=== PATIENT | female | born 1955 | race Caucasian/White ===

== ENCOUNTER 2023-07-18 09:04 | Observation (INO) ==
[2023-07-18 11:36] VITALS: BMI 29.2
[2023-07-18] MEDS: ROCEPHIN VIAL 1 GRAM 1 G in NS 100 ML IV 100 ML IV SCH (12:58)
[2023-07-18] MEDS: NS 1,000 ML IV 1,000 ML IV SCH (12:59)
[2023-07-18 13:05] LABS: BASOPHILS # (AUTO) 0.1 X10^3/uL (0.0-0.1); BASOPHILS % (AUTO) 1.3 % (0.2-1.0); EOSINOPHILS # (AUTO) 0.1 x10^3/uL (0.0-0.2); EOSINOPHILS % (AUTO) 1.2 % (0.9-2.9); HEMATOCRIT 35.3 % (36.0-47.0); HEMOGLOBIN 12.2 g/dL (12.0-16.0); LYMPHOCYTES # (AUTO) 2.4 X10^3/uL (1.3-2.9); MEAN CORPUSCULAR HEMOGLOBIN 33.8 pg (27.0-34.0); MEAN CORPUSCULAR HGB CONC 34.7 g/dL (33.0-35.0); MEAN CORPUSCULAR VOLUME 97.6 fL (80.0-100.0); MEAN PLATELET VOLUME 6.9 fL (7.4-11.0); MONOCYTES # (AUTO) 0.7 x10^3/uL (0.3-0.8); MONOCYTES % (AUTO) 7.9 % (0.0-13.0); NEUTROPHILS # (AUTO) 5.4 x10^3/uL (2.2-4.8); NEUTROPHILS % (AUTO) 61.6 % (42.0-75.0); PLATELET COUNT 384 X10^3/uL (150.0-450.0); RED BLOOD COUNT 3.62 X10^6/uL (3.5-5.4); RED CELL DISTRIBUTION WIDTH 13.8 % (11.6-16.5); WHITE BLOOD COUNT 8.7 X10^3/uL (3.6-10.0)
[2023-07-18 13:43] LABS: ALANINE AMINOTRANSFERASE 25 Units/L (12-78); ALBUMIN 3.1 g/dL (3.4-5.0); ALKALINE PHOSPHATASE 68 Units/L (46-116); ASPARTATE AMINO TRANSFERASE 13 Units/L (15-37); BLOOD UREA NITROGEN 7 mg/dL (7-18); CALCIUM 9.2 mg/dL (8.5-10.1); CARBON DIOXIDE 24.4 mmol/L (21-32); CHLORIDE 110 mmol/L (98-107); COR CA(FOR HYPOALB) 9.9 mg/dL (8.5-10.1); CREATININE 0.65 mg/dL (0.55-1.02); GLUCOSE 106 mg/dL (65-99); MAGNESIUM 1.9 mg/dL (2.0-2.9); POTASSIUM 3.2 mmol/L (3.5-5.1); SODIUM 145 mmol/L (136-145); TOTAL PROTEIN 6.5 g/dL (6.4-8.2); eGFR NON BLACK RACES > 60 (>60)
--- NOTE | 2023-07-18 13:50 | DR.H&P ---
H&P History & Physical for Day of: H&P Date: 07/18/23 Chief Complaint Chief Complaint: weakness, swelling to legs, short of breath Allergies Allergies Allergy/AdvReac Type Severity Reaction Status Date / Time codeine Allergy Verified 07/18/23 12:29 History of Present Illness History of Present Illness: PT IS 67 WF, DIRECT ADMIT WITH CO SOB WORSE ON EXERTION, SWELLING TO BOTH LEGS AND INCREASED LETHARGY. PT WAS RECENTLY ADMITTED TO [facility] IN [place] FOR AMS UTI AND INFLUENZA. PT WAS SENT TO [facility] AND WAS "TAKEN OFF LITHIUM" PT HAS PMH OF BIPOLAR DISORDER. PT DENIES ANY HX OF CAD OR CHF. PT HAS BEEN ON PO KEFLEX FOR UTI Past Surgical History Surgical History: and Cholecystectomy Family History Family Medical History: Hypertension Social History Does patient currently use any type of tobacco product: No Have you used tobacco products in the last 12 months: No Type of Tobacco Use: None Does any household member use tobacco: No Alcohol Use: None Drug Use: None Medications Home Medications: Home Medications Medication Instructions Recorded Confirmed Type buspirone 10 mg tablet 10 mg PO BID 07/18/23 07/18/23 History cholecalciferol (vitamin D3) 125 125 mcg PO DAILY 07/18/23 07/18/23 History mcg (5,000 unit) tablet (Vitamin D3) dicyclomine 10 mg capsule 10 mg PO TID PRN 07/18/23 07/18/23 History doxepin 25 mg capsule 50 mg PO QPM 07/18/23 07/18/23 History ergocalciferol (vitamin D2) 1,250 1,250 mcg PO QWEEK 07/18/23 07/18/23 History mcg (50,000 unit) capsule esomeprazole magnesium 20 mg 20 mg PO QDAY 07/18/23 07/18/23 History capsule,delayed release ezetimibe 10 mg tablet 10 mg PO QDAY 07/18/23 07/18/23 History furosemide 20 mg tablet 20 mg PO PRN 07/18/23 07/18/23 History hydrocodone 5 mg-acetaminophen 325 1 tab PO Q4H PRN 07/18/23 07/18/23 History mg tablet lithium carbonate 150 mg capsule 150 mg PO BID 07/18/23 07/18/23 History loratadine 10 mg tablet 10 mg PO QDAY 07/18/23 07/18/23 History losartan 25 mg tablet 25 mg PO BID 07/18/23 07/18/23 History montelukast 10 mg tablet 10 mg PO QDAY 07/18/23 07/18/23 History omeprazole 40 mg capsule,delayed 40 mg PO QDAY 07/18/23 07/18/23 History release ondansetron HCl 4 mg tablet 4 mg PO Q6H PRN 07/18/23 07/18/23 History oseltamivir 75 mg capsule 75 mg PO BID 07/18/23 07/18/23 History potassium chloride 10 mEq 10 meq PO QDAY 07/18/23 07/18/23 History tablet,extended release(part/cryst) pregabalin 100 mg capsule 100 mg PO TID 07/18/23 07/18/23 History propranolol 10 mg tablet 10 mg PO TID 07/18/23 07/18/23 History ropinirole 2 mg tablet 2 mg PO QPM 07/18/23 07/18/23 History valacyclovir 1 gram tablet 1,000 mg PO QDAY 07/18/23 07/18/23 History Labs 07/18/23 12:55 07/18/23 12:55 Labs: Laboratory WBC 8.7 X10^3/uL (3.6-10.0) 07/18/23 12:55 RBC 3.62 X10^6/uL (3.5-5.4) 07/18/23 12:55 Hgb 12.2 g/dL (12.0-16.0) 07/18/23 12:55 Hct 35.3 % (36.0-47.0) L 07/18/23 12:55 MCV 97.6 fL (80.0-100.0) 07/18/23 12:55 MCH 33.8 pg (27.0-34.0) 07/18/23 12:55 MCHC 34.7 g/dL (33.0-35.0) 07/18/23 12:55 RDW 13.8 % (11.6-16.5) 07/18/23 12:55 Plt Count 384 X10^3/uL (150.0-450.0) 07/18/23 12:55 MPV 6.9 fL (7.4-11.0) L 07/18/23 12:55 Neut % (Auto) 61.6 % (42.0-75.0) 07/18/23 12:55 Lymph % (Auto) 28.0 % (21.0-51.0) 07/18/23 12:55 [place] % (Auto) 7.9 % (0.0-13.0) 07/18/23 12:55 Eos % (Auto) 1.2 % (0.9-2.9) 07/18/23 12:55 Baso % (Auto) 1.3 % (0.2-1.0) H 07/18/23 12:55 Neut # (Auto) 5.4 x10^3/uL (2.2-4.8) H 07/18/23 12:55 Lymph # (Auto) 2.4 X10^3/uL (1.3-2.9) 07/18/23 12:55 [place] # (Auto) 0.7 x10^3/uL (0.3-0.8) 07/18/23 12:55 Eos # (Auto) 0.1 x10^3/uL (0.0-0.2) 07/18/23 12:55 Baso # (Auto) 0.1 X10^3/uL (0.0-0.1) 07/18/23 12:55 Absolute Nucleated RBC 0.0 /100WBC 07/18/23 12:55 D-Dimer 1.18 ug/ml (0.0-0.57) H 07/18/23 12:55 B-Natriuretic Peptide 46.7 pg/mL (0-79) 07/18/23 12:55 Review of Systems Constitutional: Weakness and Malaise Eyes: No Symptoms Reported ENT: No Symptoms Reported Respiratory: Shortness of Breath Cardiovascular: Edema Gastrointestinal: Nausea Genitourinary: Dysuria and Frequency Musculoskeletal: Back Pain Skin: No Symptoms Reported Neurological: Weakness and Confusion Physical Exam Vital Signs: Vital Signs Pulse Rate 103 Pulse Rate 107 Pulse Rate 95 Pulse Rate 80 Pulse Rate 86 Pulse Rate 92 Pulse Rate 87 Pulse Rate 92 Pulse Rate 89 Pulse Rate 83 Pulse Rate 88 Pulse Rate 93 Pulse Rate 92 Pulse Rate 87 Pulse Rate 92 Respiratory Rate 38 Respiratory Rate 44 Respiratory Rate 49 Respiratory Rate 18 Respiratory Rate 40 Respiratory Rate 35 Respiratory Rate 29 Respiratory Rate 29 Respiratory Rate 42 Respiratory Rate 19 Respiratory Rate 19 Respiratory Rate 27 Respiratory Rate 19 Respiratory Rate 20 Respiratory Rate 24 Blood Pressure 134/66 Blood Pressure 164/78 Blood Pressure 182/85 O2 Sat by Pulse Oximetry 99 O2 Sat by Pulse Oximetry 96 O2 Sat by Pulse Oximetry 95 O2 Sat by Pulse Oximetry 96 O2 Sat by Pulse Oximetry 100 O2 Sat by Pulse Oximetry 98 O2 Sat by Pulse Oximetry 96 O2 Sat by Pulse Oximetry 98 O2 Sat by Pulse Oximetry 94 O2 Sat by Pulse Oximetry 98 O2 Sat by Pulse Oximetry 68 O2 Sat by Pulse Oximetry 99 O2 Sat by Pulse Oximetry 100 O2 Sat by Pulse Oximetry 100 Oriented: Normal Eyes: Normal Nose: Normal Throat: Dry Respiratory: RLL Diminished and LLL Diminished Cardiovascular: Edema Auscultation: Bowel Sounds: Normal Palpation: Normal Tenderness: Normal Skin: Decreased [place] Musculoskeletal: Normal Psychiatric: Anxiety and Agitation Affect: Anxious Speech Pattern: Inappropriate Assessment/Plan (1) UTI (urinary tract infection): Narrative Support Text: ADMIT IV HYDRATION WITH NS AT K[facility] ADMISSION LABS INCLUDING BNP CXR ON ADMISSION I &OS, UA/UC IV ROCEPHIN OBTAIN DC SUMMARY FROM [facility] Status: Acute (2) AMS (altered mental status): Status: Acute (3) Bipolar 1 disorder: Status: Acute (4) Edema: Status: Acute (5) SOB (shortness of breath): Status: Acute
--- NOTE | 2023-07-18 13:56 | RAD ---
EXAM: CHEST, PA/LAT ADULT HISTORY: SOB; COMPARISON: Prior study or studies were utilized for comparison during interpretation with the most relevant paula ed 04/10/2023 TECHNIQUE: CHEST, PA/LAT ADULT FINDINGS: Chest: Lines and tubes: Cardiac leads overlie the chest. Mediastinum: Cardiac and mediastinal shadow is within normal limits for size and contour. Pulmonary vessels: No pulmonary vascular congestion. Lung do: No suspicious airspace opacity. Pleura: No effusion. No pneumothorax. Bones and soft tissues: No acute osseous or soft tissue abnormality. IMPRESSION: 1. No acute cardiopulmonary abnormality THIS IS AN ELECTRONICALLY VERIFIED FINAL REPORT 07/18/2023 1:53 PM - Electronically signed by Shabbir Reynolds MD
[2023-07-18] MEDS: NORCO 5/325 MG TAB PO PRN (15:36)
[2023-07-18 17:17] LABS: BILIRUBIN,URINE NEGATIVE (NEGATIVE); BLOOD/HEMOGLOBIN,URINE NEGATIVE (NEGATIVE); GLUCOSE, URINE NEGATIVE (NEGATIVE); KETONES,URINE NEGATIVE (NEGATIVE); LEUKOCYTE ESTERASE ,URINE NEGATIVE (NEGATIVE); NITRITES,URINE NEGATIVE (NEGATIVE); PROTEIN,URINE NEGATIVE (NEGATIVE); UROBILINOGEN,URINE NORMAL (NORMAL)
[2023-07-18 17:33] LABS: APPEARANCE,URINE CLEAR (CLEAR); COLOR,URINE YELLOW (YELLOW)
[2023-07-18] MEDS ORDERED: CONSULT PHARMACY - POTASSIUM & MAGNESIUM XX SCH (18:00)
[2023-07-18] MEDS: MAG-OX TAB PO SCH (21:21)
[2023-07-18] MEDS: K-DUR TAB 20 MEQ PO SCH (21:22)
[2023-07-18] MEDS: SINEquan PO SCH (21:24)
[2023-07-18] MEDS: COZAAR PO SCH (21:24)
[2023-07-18] MEDS: BUSPAR PO SCH (21:30)
[2023-07-19 04:46] LABS: BASOPHILS % (AUTO) 0.8 % (0.2-1.0); EOSINOPHILS # (AUTO) 0.2 x10^3/uL (0.0-0.2); EOSINOPHILS % (AUTO) 2.6 % (0.9-2.9); HEMATOCRIT 32.3 % (36.0-47.0); HEMOGLOBIN 11.3 g/dL (12.0-16.0); LYMPHOCYTES # (AUTO) 1.9 X10^3/uL (1.3-2.9); LYMPHOCYTES % (AUTO) 30.4 % (21.0-51.0); MEAN CORPUSCULAR HEMOGLOBIN 34.1 pg (27.0-34.0); MEAN CORPUSCULAR HGB CONC 35.1 g/dL (33.0-35.0); MEAN CORPUSCULAR VOLUME 97.2 fL (80.0-100.0); MEAN PLATELET VOLUME 7.2 fL (7.4-11.0); MONOCYTES # (AUTO) 0.7 x10^3/uL (0.3-0.8); MONOCYTES % (AUTO) 11.3 % (0.0-13.0); NEUTROPHILS # (AUTO) 3.5 x10^3/uL (2.2-4.8); NEUTROPHILS % (AUTO) 54.9 % (42.0-75.0); PLATELET COUNT 364 X10^3/uL (150.0-450.0); RED BLOOD COUNT 3.32 X10^6/uL (3.5-5.4); RED CELL DISTRIBUTION WIDTH 13.7 % (11.6-16.5); WHITE BLOOD COUNT 6.3 X10^3/uL (3.6-10.0)
[2023-07-19 04:57] LABS: ALANINE AMINOTRANSFERASE 24 Units/L (12-78); ALBUMIN 2.6 g/dL (3.4-5.0); ALKALINE PHOSPHATASE 64 Units/L (46-116); ASPARTATE AMINO TRANSFERASE 9 Units/L (15-37); BLOOD UREA NITROGEN 10 mg/dL (7-18); CALCIUM 8.4 mg/dL (8.5-10.1); CARBON DIOXIDE 23.6 mmol/L (21-32); CHLORIDE 112 mmol/L (98-107); COR CA(FOR HYPOALB) 9.5 mg/dL (8.5-10.1); COR NA(FOR HYPERGLY) 147 mmol/L (136-145); CREATININE 0.68 mg/dL (0.55-1.02); GLUCOSE 130 mg/dL (65-99); MAGNESIUM 1.9 mg/dL (2.0-2.9); POTASSIUM 3.5 mmol/L (3.5-5.1); SODIUM 146 mmol/L (136-145); TOTAL PROTEIN 5.8 g/dL (6.4-8.2); eGFR NON BLACK RACES > 60 (>60)
[2023-07-19] MEDS: MAG-OX TAB PO SCH (08:25)
[2023-07-19] MEDS: K-DUR TAB 20 MEQ PO SCH (08:25)
[2023-07-19] MEDS: SINGULAIR TAB 10 MG PO SCH (08:40)
[2023-07-19] MEDS: NS 1/2 1,000 ML IV 1,000 ML IV SCH (08:40)
--- NOTE | 2023-07-19 09:14 | EKG ---
Test Reason : increased heart rate Blood Pressure : */* mmHG Vent. Rate : 102 BPM Atrial Rate : 102 BPM P-R Int : 114 ms QRS Dur : 88 ms QT Int : 358 ms P-R-T Axes : 19 -35 15 degrees QTc Int : 466 ms Sinus tachycardia Left axis deviation Moderate voltage criteria for LVH, may be normal variant ( R in aVL , [place] product ) Abnormal ECG When compared with ECG of 10-APR-2023 10:32, No significant change was found Confirmed by Jose C Zamora ([id number]) on 07/19/2023 12:26:44 PM Referred By: Confirmed By: Jose C Zamora
[2023-07-19] MEDS: NS 1/2 1,000 ML IV 1,000 ML IV ONE (09:31)
[2023-07-19] MEDS: CONSULT PHARMACY - POTASSIUM & MAGNESIUM XX SCH (09:32)
--- NOTE | 2023-07-19 17:28 | PCM.PROG ---
Progress Note Progress Note for Day of Date of Exam: 07/19/23 Subjective Subjective: Patient is a 67 year old white female who was a direct admit yesterday for treatment of SOB worse on exertion, lower extremity edema and increased lethargy. She had been recently treated at [facility] for AMS, UTI, influenza. She was transferred to behavior unit and was taken off of li thium, in treatment of bipolar disorder, per patient. She had been on po keflex for UTI. Upon admission, labs obtained: wbc 8.7, hgb 12.2, na 145, k 3.2, magnesium 1.9. Chest xray showed no acute cardiopulmonary process. Urine culture, lithium level obtained and pending. EKG showed no significant change from previous reading. We started the patient on IV hydration, IV abx, potassium/magnesium replacement, and resumed home medications. AM labs: wbc, 6.3, hgb 11.3, na 146, k 3.5, magnesium 1.9. Morning vitals: 169/09-704-23-96%. Patient reported that she was also treated for shingles duri ng previous hospitalization and records show that patient completed a round of valacyclovir. Past Medical Family Social History Allergies: Allergies codeine Allergy (Verified 07/18/23 12:29) Vital Signs and I&O's Vital Signs: Vital Signs Temperature 98.5 F Pulse Rate 102 Pulse Rate 110 Pulse Rate 96 Pulse Rate 105 Pulse Rate 87 Pulse Rate 112 Respiratory Rate 14 Respiratory Rate 14 Respiratory Rate 23 Respiratory Rate 18 Respiratory Rate 14 Respiratory Rate 12 Respiratory Rate 13 Blood Pressure 169/71 Blood Pressure 165/74 Blood Pressure 156/68 Blood Pressure 154/70 Blood Pressure 156/67 Blood Pressure 156/74 O2 Sat by Pulse Oximetry 96 O2 Sat by Pulse Oximetry 99 O2 Sat by Pulse Oximetry 97 O2 Sat by Pulse Oximetry 99 O2 Sat by Pulse Oximetry 95 O2 Sat by Pulse Oximetry 100 Intake and Output: Intake & Output 07/16/23 07/17/23 07/18/23 07/19/23 11:59 11:59 11:59 11:59 Intake Total 1555 / 1555 Balance 1555 / 1555 Physical Exam Oriented: Normal Eyes: Normal Nose: Normal Throat: Dry Cardiovascular: Edema Auscultation: Bowel Sounds: Normal Tenderness: Normal Skin: Decreased [place] Musculoskeletal: Normal Psychiatric: Anxiety and Agitation Affect: Anxious Speech Pattern: Clear and Appropriate Laboratory and Diagnostics 07/19/23 04:16 07/19/23 04:16 Labs: Laboratory WBC 6.3 X10^3/uL (3.6-10.0) 07/19/23 04:16 RBC 3.32 X10^6/uL (3.5-5.4) L 07/19/23 04:16 Hgb 11.3 g/dL (12.0-16.0) L 07/19/23 04:16 Hct 32.3 % (36.0-47.0) L 07/19/23 04:16 MCV 97.2 fL (80.0-100.0) 07/19/23 04:16 MCH 34.1 pg (27.0-34.0) H 07/19/23 04:16 MCHC 35.1 g/dL (33.0-35.0) H 07/19/23 04:16 RDW 13.7 % (11.6-16.5) 07/19/23 04:16 Plt Count 364 X10^3/uL (150.0-450.0) 07/19/23 04:16 MPV 7.2 fL (7.4-11.0) L 07/19/23 04:16 Neut % (Auto) 54.9 % (42.0-75.0) 07/19/23 04:16 Lymph % (Auto) 30.4 % (21.0-51.0) 07/19/23 04:16 [place] % (Auto) 11.3 % (0.0-13.0) 07/19/23 04:16 Eos % (Auto) 2.6 % (0.9-2.9) 07/19/23 04:16 Baso % (Auto) 0.8 % (0.2-1.0) 07/19/23 04:16 Neut # (Auto) 3.5 x10^3/uL (2.2-4.8) 07/19/23 04:16 Lymph # (Auto) 1.9 X10^3/uL (1.3-2.9) 07/19/23 04:16 [place] # (Auto) 0.7 x10^3/uL (0.3-0.8) 07/19/23 04:16 Eos # (Auto) 0.2 x10^3/uL (0.0-0.2) 07/19/23 04:16 Baso # (Auto) 0.0 X10^3/uL (0.0-0.1) 07/19/23 04:16 Absolute Nucleated RBC 0.0 /100WBC 07/19/23 04:16 D-Dimer 1.18 ug/ml (0.0-0.57) H 07/18/23 12:55 Sodium 146 mmol/L (136-145) H 07/19/23 04:16 Corrected Sodium 147 mmol/L (136-145) H 07/19/23 04:16 Potassium 3.5 mmol/L (3.5-5.1) 07/19/23 04:16 Chloride 112 mmol/L (98-107) H 07/19/23 04:16 Carbon Dioxide 23.6 mmol/L (21-32) 07/19/23 04:16 BUN 10 mg/dL (7-18) 07/19/23 04:16 Creatinine 0.68 mg/dL (0.55-1.02) 07/19/23 04:16 Est GFR (MDRD) Af Amer > 60 (>60) 07/19/23 04:16 Est GFR (MDRD) Non-Af > 60 (>60) 07/19/23 04:16 Glucose 130 mg/dL (65-99) H 07/19/23 04:16 Calcium 8.4 mg/dL (8.5-10.1) L 07/19/23 04:16 Corrected Calcium 9.5 mg/dL (8.5-10.1) 07/19/23 04:16 Magnesium 1.9 mg/dL (2.0-2.9) L 07/19/23 04:16 Total Bilirubin 0.20 mg/dL (0.2-1.0) 07/19/23 04:16 AST 9 Units/L (15-37) L 07/19/23 04:16 ALT 24 Units/L (12-78) 07/19/23 04:16 Alkaline Phosphatase 64 Units/L (46-116) 07/19/23 04:16 B-Natriuretic Peptide 46.7 pg/mL (0-79) 07/18/23 12:55 Total Protein 5.8 g/dL (6.4-8.2) L 07/19/23 04:16 Albumin 2.6 g/dL (3.4-5.0) L 07/19/23 04:16 Globulin 3.2 g/dL (2.5-4.5) 07/19/23 04:16 Albumin/Globulin Ratio 0.8 Ratio (1.1-2.1) L 07/19/23 04:16 Specimen Type Clean catch urine 07/18/23 16:56 Urine Color Yellow (YELLOW) 07/18/23 16:56 Urine Appearance Clear (CLEAR) 07/18/23 16:56 Urine pH 7.0 (5.0 - 8.0) 07/18/23 16:56 Ur Specific [place] 1.010 (1.000-1.030) 07/18/23 16:56 Urine Protein Negative (NEGATIVE) 07/18/23 16:56 Urine Glucose (UA) Negative (NEGATIVE) 07/18/23 16:56 Urine Ketones Negative (NEGATIVE) 07/18/23 16:56 Urine Blood Negative (NEGATIVE) 07/18/23 16:56 Urine Nitrite Negative (NEGATIVE) 07/18/23 16:56 Urine Bilirubin Negative (NEGATIVE) 07/18/23 16:56 Urine Urobilinogen Normal (NORMAL) 07/18/23 16:56 Ur Leukocyte Esterase Negative (NEGATIVE) 07/18/23 16:56 Plan (1) UTI (urinary tract infection): Status: Acute Narrative Support Text: Continue IV abx, decrease rate of fluids, restart propranolol and lithium. (2) AMS (altered mental status): Status: Acute (3) Bipolar 1 disorder: Status: Acute (4) Edema: Status: Acute (5) SOB (shortness of breath): Status: Acute
[2023-07-19] MEDS: REQUIP PO SCH (20:25)
[2023-07-19] MEDS: INDERAL TAB 10 MG PO SCH (21:40)
[2023-07-20 05:01] LABS: BASOPHILS # (AUTO) 0.1 X10^3/uL (0.0-0.1); BASOPHILS % (AUTO) 0.8 % (0.2-1.0); EOSINOPHILS # (AUTO) 0.2 x10^3/uL (0.0-0.2); EOSINOPHILS % (AUTO) 3.1 % (0.9-2.9); HEMATOCRIT 33.7 % (36.0-47.0); HEMOGLOBIN 11.6 g/dL (12.0-16.0); LYMPHOCYTES # (AUTO) 1.6 X10^3/uL (1.3-2.9); LYMPHOCYTES % (AUTO) 24.5 % (21.0-51.0); MEAN CORPUSCULAR HGB CONC 34.4 g/dL (33.0-35.0); MEAN CORPUSCULAR VOLUME 98.9 fL (80.0-100.0); MEAN PLATELET VOLUME 7.1 fL (7.4-11.0); MONOCYTES # (AUTO) 0.6 x10^3/uL (0.3-0.8); MONOCYTES % (AUTO) 8.8 % (0.0-13.0); NEUTROPHILS # (AUTO) 4.2 x10^3/uL (2.2-4.8); NEUTROPHILS % (AUTO) 62.8 % (42.0-75.0); PLATELET COUNT 336 X10^3/uL (150.0-450.0); RED BLOOD COUNT 3.41 X10^6/uL (3.5-5.4); RED CELL DISTRIBUTION WIDTH 13.7 % (11.6-16.5); WHITE BLOOD COUNT 6.6 X10^3/uL (3.6-10.0)
[2023-07-20 05:11] LABS: ALANINE AMINOTRANSFERASE 22 Units/L (12-78); ALBUMIN 2.7 g/dL (3.4-5.0); ALKALINE PHOSPHATASE 62 Units/L (46-116); ASPARTATE AMINO TRANSFERASE 12 Units/L (15-37); BLOOD UREA NITROGEN 10 mg/dL (7-18); CALCIUM 8.2 mg/dL (8.5-10.1); CARBON DIOXIDE 25.1 mmol/L (21-32); CHLORIDE 110 mmol/L (98-107); COR CA(FOR HYPOALB) 9.2 mg/dL (8.5-10.1); COR NA(FOR HYPERGLY) 143 mmol/L (136-145); CREATININE 0.67 mg/dL (0.55-1.02); GLUCOSE 135 mg/dL (65-99); MAGNESIUM 2.1 mg/dL (2.0-2.9); POTASSIUM 3.9 mmol/L (3.5-5.1); SODIUM 142 mmol/L (136-145); TOTAL PROTEIN 5.9 g/dL (6.4-8.2); eGFR NON BLACK RACES > 60 (>60)
[2023-07-20 09:07] VITALS: BP 141/73; PULSE 93; TEMP 97.7; O2SAT 97
[2023-07-20] MEDS: ROCEPHIN VIAL 1 GRAM IM ONE (09:47)
[2023-07-20] MEDS: XYLOCAINE 1 % (PLAIN) IM ONE (09:47)
[2023-07-20 10:06] VITALS: RESP 21
--- NOTE | 2023-07-20 17:51 | PCM.DCPLAN ---
DISCHARGE SUMMARY Admission Date Date of Admission: 07/18/23 Discharge Date Discharge Date: 07/20/23 Admission Diagnoses (1) UTI (urinary tract infection): Status: Acute (2) AMS (altered mental status): Status: Acute (3) Bipolar 1 disorder: Status: Acute (4) Edema: Status: Acute (5) SOB (shortness of breath): Status: Acute Discharge Diagnoses Discharge Diagnosis: SAME ADMISSION, RESOLVED AMS, EDEMA, SHORTNESS OF BREATH Discharge Medications Discharge Medications: Home Medication List buspirone 10 mg tablet 10 mg PO BID 07/18/23 [History] cholecalciferol (vitamin D3) 125 mcg (5,000 unit) tablet (Vitamin D3) 125 mcg PO DAILY 07/18/23 [History] dicyclomine 10 mg capsule 10 mg PO TID PRN 07/18/23 [History] doxepin 25 mg capsule 50 mg PO QPM 07/18/23 [History] ergocalciferol (vitamin D2) 1,250 mcg (50,000 unit) capsule 1,250 mcg PO QWEEK 07/18/23 [History] esomeprazole magnesium 20 mg capsule,delayed release 20 mg PO QDAY 07/18/23 [History] ezetimibe 10 mg tablet 10 mg PO QDAY 07/18/23 [History] furosemide 20 mg tablet 20 mg PO PRN 07/18/23 [History] hydrocodone 5 mg-acetaminophen 325 mg tablet 1 tab PO Q4H PRN 07/18/23 [History] lithium carbonate 150 mg capsule 150 mg PO BID 07/18/23 [History] loratadine 10 mg tablet 10 mg PO QDAY 07/18/23 [History] losartan 25 mg tablet 25 mg PO BID 07/18/23 [History] montelukast 10 mg tablet 10 mg PO QDAY 07/18/23 [History] omeprazole 40 mg capsule,delayed release 40 mg PO QDAY 07/18/23 [History] ondansetron HCl 4 mg tablet 4 mg PO Q6H PRN 07/18/23 [History] oseltamivir 75 mg capsule 75 mg PO BID 07/18/23 [History] potassium chloride 10 mEq tablet,extended release(part/cryst) 10 meq PO QDAY 07/18/23 [History] pregabalin 100 mg capsule 100 mg PO TID 07/18/23 [History] propranolol 10 mg tablet 10 mg PO TID 07/18/23 [History] ropinirole 2 mg tablet 2 mg PO QPM 07/18/23 [History] valacyclovir 1 gram tablet 1,000 mg PO QDAY 07/18/23 [History] Prescriptions: Hospital Course Vital Signs: Vital Signs Temperature 97.7 F Pulse Rate 93 Pulse Rate 94 Pulse Rate 92 Pulse Rate 87 Pulse Rate 86 Pulse Rate 85 Pulse Rate 87 Respiratory Rate 21 Respiratory Rate 36 Respiratory Rate 14 Respiratory Rate 37 Respiratory Rate 35 Respiratory Rate 30 Respiratory Rate 19 Respiratory Rate 25 Respiratory Rate 23 Blood Pressure 141/73 O2 Sat by Pulse Oximetry 97 O2 Sat by Pulse Oximetry 97 O2 Sat by Pulse Oximetry 99 O2 Sat by Pulse Oximetry 100 O2 Sat by Pulse Oximetry 97 O2 Sat by Pulse Oximetry 99 O2 Sat by Pulse Oximetry 99 Latest Lab Results: Laboratory Last Values WBC 6.6 X10^3/uL (3.6-10.0) 07/20/23 04:21 RBC 3.41 X10^6/uL (3.5-5.4) L 07/20/23 04:21 Hgb 11.6 g/dL (12.0-16.0) L 07/20/23 04:21 Hct 33.7 % (36.0-47.0) L 07/20/23 04:21 MCV 98.9 fL (80.0-100.0) 07/20/23 04:21 MCH 34.0 pg (27.0-34.0) 07/20/23 04:21 MCHC 34.4 g/dL (33.0-35.0) 07/20/23 04:21 RDW 13.7 % (11.6-16.5) 07/20/23 04:21 Plt Count 336 X10^3/uL (150.0-450.0) 07/20/23 04:21 MPV 7.1 fL (7.4-11.0) L 07/20/23 04:21 Neut % (Auto) 62.8 % (42.0-75.0) 07/20/23 04:21 Lymph % (Auto) 24.5 % (21.0-51.0) 07/20/23 04:21 [place] % (Auto) 8.8 % (0.0-13.0) 07/20/23 04:21 Eos % (Auto) 3.1 % (0.9-2.9) H 07/20/23 04:21 Baso % (Auto) 0.8 % (0.2-1.0) 07/20/23 04:21 Neut # (Auto) 4.2 x10^3/uL (2.2-4.8) 07/20/23 04:21 Lymph # (Auto) 1.6 X10^3/uL (1.3-2.9) 07/20/23 04:21 [place] # (Auto) 0.6 x10^3/uL (0.3-0.8) 07/20/23 04:21 Eos # (Auto) 0.2 x10^3/uL (0.0-0.2) 07/20/23 04:21 Baso # (Auto) 0.1 X10^3/uL (0.0-0.1) 07/20/23 04:21 Absolute Nucleated RBC 0.0 /100WBC 07/20/23 04:21 D-Dimer 1.18 ug/ml (0.0-0.57) H 07/18/23 12:55 Sodium 142 mmol/L (136-145) 07/20/23 04:21 Corrected Sodium 143 mmol/L (136-145) 07/20/23 04:21 Potassium 3.9 mmol/L (3.5-5.1) 07/20/23 04:21 Chloride 110 mmol/L (98-107) H 07/20/23 04:21 Carbon Dioxide 25.1 mmol/L (21-32) 07/20/23 04:21 BUN 10 mg/dL (7-18) 07/20/23 04:21 Creatinine 0.67 mg/dL (0.55-1.02) 07/20/23 04:21 Est GFR (MDRD) Af Amer > 60 (>60) 07/20/23 04:21 Est GFR (MDRD) Non-Af > 60 (>60) 07/20/23 04:21 Glucose 135 mg/dL (65-99) H 07/20/23 04:21 Calcium 8.2 mg/dL (8.5-10.1) L 07/20/23 04:21 Corrected Calcium 9.2 mg/dL (8.5-10.1) 07/20/23 04:21 Magnesium 2.1 mg/dL (2.0-2.9) 07/20/23 04:21 Total Bilirubin 0.30 mg/dL (0.2-1.0) 07/20/23 04:21 AST 12 Units/L (15-37) L 07/20/23 04:21 ALT 22 Units/L (12-78) 07/20/23 04:21 Alkaline Phosphatase 62 Units/L (46-116) 07/20/23 04:21 B-Natriuretic Peptide 46.7 pg/mL (0-79) 07/18/23 12:55 Total Protein 5.9 g/dL (6.4-8.2) L 07/20/23 04:21 Albumin 2.7 g/dL (3.4-5.0) L 07/20/23 04:21 Globulin 3.2 g/dL (2.5-4.5) 07/20/23 04:21 Albumin/Globulin Ratio 0.8 Ratio (1.1-2.1) L 07/20/23 04:21 Specimen Type Clean catch urine 07/18/23 16:56 Urine Color Yellow (YELLOW) 07/18/23 16:56 Urine Appearance Clear (CLEAR) 07/18/23 16:56 Urine pH 7.0 (5.0 - 8.0) 07/18/23 16:56 Ur Specific [place] 1.010 (1.000-1.030) 07/18/23 16:56 Urine Protein Negative (NEGATIVE) 07/18/23 16:56 Urine Glucose (UA) Negative (NEGATIVE) 07/18/23 16:56 Urine Ketones Negative (NEGATIVE) 07/18/23 16:56 Urine Blood Negative (NEGATIVE) 07/18/23 16:56 Urine Nitrite Negative (NEGATIVE) 07/18/23 16:56 Urine Bilirubin Negative (NEGATIVE) 07/18/23 16:56 Urine Urobilinogen Normal (NORMAL) 07/18/23 16:56 Ur Leukocyte Esterase Negative (NEGATIVE) 07/18/23 16:56 Hospital Course: Patient is a 67 year old white female who was a direct admit on 07/18/23 for treatment of SOB worse on exertion, lower extremity edema and increased lethargy. She had been recently treated at [facility] for AMS, UTI, influenza. She was transferred to behavior unit and was taken off of lithium, in treatment of bipolar disorder, per patient. She had been on po keflex for UTI. Upon admission, labs obtained: wbc 8.7, hgb 12.2, na 145, k 3.2, magnesium 1.9. Chest xray showed no acute cardiopulmonary process. EKG showed no significant change from previous reading in March. Urine culture obtain on admission showed >10,000, <50,000 colony count. We obtained a lithium level and it is pending. Patient was treated with IV hydration, IV abx, potassium/magnesium replacement, and lithium/propranolol were resumed. Morning labs: wbc 6.6, hgb 11.6, na 142, k 3.9, bun 10/creatinine 0.67, magnesium 2.1. AM vitals: 141/73-93-21-97% room air. Overall, patient's condition improved and she states that she is feeling much better. We will allow patient to discharge home to resume keflex and lithium/propranolol. She will need to follow up with her primary care provider and is she scheduled for appointment on 07/27/23 at 10AM. She will also need a repeat lithium level in 1 week. Please see discharge medications and modifications that we made, electronic medical record for diagnostic tests and labs. The patient was instructed to return to the ER if condition changed or worsened unexpectedly.
== END 2023-07-20 11:05 | disposition home or self-care (01) ==
LOC: ICU
PROVIDERS: ADMIT Internal Medicine; ATTEND Internal Medicine
DX: R00.0 Tachycardia, unspecified; E87.1 Hypo-osmolality and hyponatremia; E83.42 Hypomagnesemia; N39.0 Urinary tract infection, site not specified; R60.0 Localized edema; R06.02 Shortness of breath; F31.89 Other bipolar disorder; R41.82 Altered mental status, unspecified; R53.1 Weakness; F41.8 Other specified anxiety disorders

== ENCOUNTER 2023-09-29 11:34 | Observation (INO) ==
[2023-09-29 12:59] LABS: BASOPHILS # (AUTO) 0.1 X10^3/uL (0.0-0.1); BASOPHILS % (AUTO) 0.7 % (0.2-1.0); EOSINOPHILS # (AUTO) 0.2 x10^3/uL (0.0-0.2); EOSINOPHILS % (AUTO) 1.3 % (0.9-2.9); HEMATOCRIT 40.7 % (36.0-47.0); HEMOGLOBIN 13.8 g/dL (12.0-16.0); LYMPHOCYTES # (AUTO) 2.6 X10^3/uL (1.3-2.9); LYMPHOCYTES % (AUTO) 22.2 % (21.0-51.0); MEAN CORPUSCULAR HEMOGLOBIN 33.1 pg (27.0-34.0); MEAN CORPUSCULAR HGB CONC 33.9 g/dL (33.0-35.0); MEAN CORPUSCULAR VOLUME 97.7 fL (80.0-100.0); MEAN PLATELET VOLUME 7.1 fL (7.4-11.0); MONOCYTES # (AUTO) 0.6 x10^3/uL (0.3-0.8); NEUTROPHILS # (AUTO) 8.3 x10^3/uL (2.2-4.8); NEUTROPHILS % (AUTO) 70.8 % (42.0-75.0); PLATELET COUNT 344 X10^3/uL (150.0-450.0); RED BLOOD COUNT 4.17 X10^6/uL (3.5-5.4); RED CELL DISTRIBUTION WIDTH 13.3 % (11.6-16.5); WHITE BLOOD COUNT 11.8 X10^3/uL (3.6-10.0)
[2023-09-29] MEDS: NS 1,000 ML IV 1,000 ML IV SCH (13:08)
[2023-09-29] MEDS: AMPICILLIN VIAL 1 GRAM 1 G in NS 100 ML IV 100 ML IV SCH (13:08)
[2023-09-29] MEDS: PROTONIX TAB 40 MG PO ONE (13:09)
[2023-09-29 13:24] LABS: ALANINE AMINOTRANSFERASE 46 Units/L (12-78); ALBUMIN 3.5 g/dL (3.4-5.0); ALKALINE PHOSPHATASE 75 Units/L (46-116); ASPARTATE AMINO TRANSFERASE 33 Units/L (15-37); BLOOD UREA NITROGEN 18 mg/dL (7-18); CALCIUM 9.3 mg/dL (8.5-10.1); CARBON DIOXIDE 23.8 mmol/L (21-32); CHLORIDE 104 mmol/L (98-107); COR NA(FOR HYPERGLY) 138 mmol/L (136-145); CREATININE 0.72 mg/dL (0.55-1.02); GLUCOSE 122 mg/dL (65-99); POTASSIUM 3.5 mmol/L (3.5-5.1); SODIUM 137 mmol/L (136-145); eGFR NON BLACK RACES > 60 (>60)
[2023-09-29] MEDS: ROCEPHIN VIAL 1 GRAM 1 G in NS 100 ML IV 100 ML IV SCH (14:31)
[2023-09-29 15:40] VITALS: BMI 28.4
[2023-09-29 15:52] LABS: BILIRUBIN,URINE NEGATIVE (NEGATIVE); BLOOD/HEMOGLOBIN,URINE NEGATIVE (NEGATIVE); GLUCOSE, URINE NEGATIVE (NEGATIVE); KETONES,URINE NEGATIVE (NEGATIVE); LEUKOCYTE ESTERASE ,URINE 1+ (NEGATIVE); NITRITES,URINE NEGATIVE (NEGATIVE); PROTEIN,URINE NEGATIVE (NEGATIVE); UROBILINOGEN,URINE NORMAL (NORMAL)
[2023-09-29] MEDS ORDERED: CONSULT PHARMACY - POTASSIUM & MAGNESIUM XX SCH ×2 (16:00→17:00)
[2023-09-29 16:02] LABS: APPEARANCE,URINE CLEAR (CLEAR); COLOR,URINE STRAW (YELLOW)
[2023-09-29 16:03] LABS: BACTERIA,URINE TRACE /HPF (NEGATIVE); RBC,URINE 0-2 /HPF (0-3); SQUAMOUS EPITHELIAL CELL,UR RARE /HPF (NEGATIVE)
[2023-09-29] MEDS: MAG-OX TAB PO SCH (17:57)
[2023-09-29] MEDS: K-DUR TAB 20 MEQ PO SCH (21:02)
[2023-09-29] MEDS: ZyPREXA TAB 5 MG PO SCH (21:02)
[2023-09-29] MEDS: REQUIP PO SCH (21:02)
[2023-09-29] MEDS: BUSPAR PO SCH (21:20)
[2023-09-29] MEDS: PATIENT'S HOME MEDICATION PO SCH (22:15)
[2023-09-29] MEDS: TYLENOL 325 MG TAB PO PRN (22:57)
[2023-09-30 05:43] LABS: BASOPHILS % (AUTO) 0.5 % (0.2-1.0); EOSINOPHILS # (AUTO) 0.1 x10^3/uL (0.0-0.2); EOSINOPHILS % (AUTO) 1.2 % (0.9-2.9); HEMATOCRIT 34.5 % (36.0-47.0); HEMOGLOBIN 11.7 g/dL (12.0-16.0); LYMPHOCYTES # (AUTO) 2.1 X10^3/uL (1.3-2.9); LYMPHOCYTES % (AUTO) 29.1 % (21.0-51.0); MEAN CORPUSCULAR HEMOGLOBIN 33.3 pg (27.0-34.0); MEAN CORPUSCULAR VOLUME 98.1 fL (80.0-100.0); MONOCYTES # (AUTO) 0.5 x10^3/uL (0.3-0.8); MONOCYTES % (AUTO) 6.7 % (0.0-13.0); NEUTROPHILS # (AUTO) 4.6 x10^3/uL (2.2-4.8); NEUTROPHILS % (AUTO) 62.5 % (42.0-75.0); PLATELET COUNT 271 X10^3/uL (150.0-450.0); RED BLOOD COUNT 3.52 X10^6/uL (3.5-5.4); RED CELL DISTRIBUTION WIDTH 14.2 % (11.6-16.5); WHITE BLOOD COUNT 7.4 X10^3/uL (3.6-10.0)
[2023-09-30 05:58] LABS: ALANINE AMINOTRANSFERASE 35 Units/L (12-78); ALBUMIN 2.7 g/dL (3.4-5.0); ALKALINE PHOSPHATASE 68 Units/L (46-116); ASPARTATE AMINO TRANSFERASE 21 Units/L (15-37); BLOOD UREA NITROGEN 15 mg/dL (7-18); CALCIUM 8.1 mg/dL (8.5-10.1); CHLORIDE 109 mmol/L (98-107); COR CA(FOR HYPOALB) 9.1 mg/dL (8.5-10.1); COR NA(FOR HYPERGLY) 141 mmol/L (136-145); CREATININE 0.65 mg/dL (0.55-1.02); GLUCOSE 128 mg/dL (65-99); POTASSIUM 3.7 mmol/L (3.5-5.1); SODIUM 140 mmol/L (136-145); TOTAL PROTEIN 5.5 g/dL (6.4-8.2); eGFR NON BLACK RACES > 60 (>60)
[2023-09-30] MEDS: MICARDIS PO SCH (08:53)
[2023-09-30] MEDS: TOPROL XL PO SCH ×2 (08:53→12:23)
[2023-09-30] MEDS: ULTRAM PO PRN (15:57)
[2023-10-01 05:28] LABS: BASOPHILS % (AUTO) 0.6 % (0.2-1.0); EOSINOPHILS # (AUTO) 0.1 x10^3/uL (0.0-0.2); EOSINOPHILS % (AUTO) 1.4 % (0.9-2.9); HEMOGLOBIN 12.5 g/dL (12.0-16.0); LYMPHOCYTES # (AUTO) 2.4 X10^3/uL (1.3-2.9); LYMPHOCYTES % (AUTO) 31.9 % (21.0-51.0); MEAN CORPUSCULAR HEMOGLOBIN 33.4 pg (27.0-34.0); MEAN CORPUSCULAR HGB CONC 33.7 g/dL (33.0-35.0); MEAN CORPUSCULAR VOLUME 99.2 fL (80.0-100.0); MEAN PLATELET VOLUME 7.1 fL (7.4-11.0); MONOCYTES # (AUTO) 0.5 x10^3/uL (0.3-0.8); MONOCYTES % (AUTO) 6.9 % (0.0-13.0); NEUTROPHILS # (AUTO) 4.5 x10^3/uL (2.2-4.8); NEUTROPHILS % (AUTO) 59.2 % (42.0-75.0); PLATELET COUNT 291 X10^3/uL (150.0-450.0); RED BLOOD COUNT 3.73 X10^6/uL (3.5-5.4); RED CELL DISTRIBUTION WIDTH 14.1 % (11.6-16.5); WHITE BLOOD COUNT 7.6 X10^3/uL (3.6-10.0)
[2023-10-01 05:53] LABS: ALANINE AMINOTRANSFERASE 35 Units/L (12-78); ALBUMIN 2.8 g/dL (3.4-5.0); ALKALINE PHOSPHATASE 74 Units/L (46-116); ASPARTATE AMINO TRANSFERASE 20 Units/L (15-37); BLOOD UREA NITROGEN 12 mg/dL (7-18); CALCIUM 8.6 mg/dL (8.5-10.1); CARBON DIOXIDE 27.4 mmol/L (21-32); CHLORIDE 110 mmol/L (98-107); COR CA(FOR HYPOALB) 9.6 mg/dL (8.5-10.1); COR NA(FOR HYPERGLY) 144 mmol/L (136-145); GLUCOSE 127 mg/dL (65-99); POTASSIUM 3.7 mmol/L (3.5-5.1); SODIUM 143 mmol/L (136-145); eGFR NON BLACK RACES > 60 (>60)
[2023-10-01] MEDS ORDERED: CONSULT PHARMACY - POTASSIUM & MAGNESIUM XX SCH (07:00)
[2023-10-01] MEDS: K-DUR TAB 20 MEQ PO SCH (08:44)
[2023-10-01] MEDS: NORCO 5/325 MG TAB PO PRN (09:45)
[2023-10-01 12:55] VITALS: RESP 20
[2023-10-01] MEDS: LITHIUM CARBONATE (PLAIN) PO SCH (20:57)
[2023-10-01] MEDS: COLACE CAP 100 MG PO PRN (20:58)
[2023-10-02 04:38] VITALS: O2SAT 98
[2023-10-02 04:46] LABS: BASOPHILS # (AUTO) 0.1 X10^3/uL (0.0-0.1); BASOPHILS % (AUTO) 1.1 % (0.2-1.0); EOSINOPHILS # (AUTO) 0.2 x10^3/uL (0.0-0.2); EOSINOPHILS % (AUTO) 1.9 % (0.9-2.9); HEMATOCRIT 38.9 % (36.0-47.0); HEMOGLOBIN 13.2 g/dL (12.0-16.0); LYMPHOCYTES # (AUTO) 2.8 X10^3/uL (1.3-2.9); LYMPHOCYTES % (AUTO) 33.2 % (21.0-51.0); MEAN CORPUSCULAR HEMOGLOBIN 33.4 pg (27.0-34.0); MEAN CORPUSCULAR HGB CONC 33.8 g/dL (33.0-35.0); MEAN CORPUSCULAR VOLUME 98.9 fL (80.0-100.0); MONOCYTES # (AUTO) 0.6 x10^3/uL (0.3-0.8); NEUTROPHILS # (AUTO) 4.8 x10^3/uL (2.2-4.8); NEUTROPHILS % (AUTO) 56.8 % (42.0-75.0); PLATELET COUNT 313 X10^3/uL (150.0-450.0); RED BLOOD COUNT 3.94 X10^6/uL (3.5-5.4); RED CELL DISTRIBUTION WIDTH 13.8 % (11.6-16.5); WHITE BLOOD COUNT 8.4 X10^3/uL (3.6-10.0)
[2023-10-02 04:58] LABS: ALANINE AMINOTRANSFERASE 39 Units/L (12-78); ALBUMIN 3.2 g/dL (3.4-5.0); ALKALINE PHOSPHATASE 101 Units/L (46-116); ASPARTATE AMINO TRANSFERASE 18 Units/L (15-37); BLOOD UREA NITROGEN 19 mg/dL (7-18); CALCIUM 9.3 mg/dL (8.5-10.1); CHLORIDE 108 mmol/L (98-107); COR CA(FOR HYPOALB) 9.9 mg/dL (8.5-10.1); COR NA(FOR HYPERGLY) 143 mmol/L (136-145); CREATININE 0.67 mg/dL (0.55-1.02); GLUCOSE 116 mg/dL (65-99); POTASSIUM 4.5 mmol/L (3.5-5.1); SODIUM 143 mmol/L (136-145); TOTAL PROTEIN 6.5 g/dL (6.4-8.2); eGFR NON BLACK RACES > 60 (>60)
[2023-10-02] MEDS: XYLOCAINE 1 % (PLAIN) IM ONE (07:13)
[2023-10-02] MEDS: XYLOCAINE 1 % (PLAIN) ONE (07:13)
[2023-10-02 07:47] VITALS: BP 153/67; PULSE 96; TEMP 98.4
== END 2023-10-02 11:00 | disposition home or self-care (01) ==
LOC: MED/SURG
PROVIDERS: ADMIT Obstetrics & Gynecology Obstetrics; ATTEND Obstetrics & Gynecology Obstetrics
DX: I10 Essential (primary) hypertension; L03.011 Cellulitis of right finger; R00.0 Tachycardia, unspecified; F31.89 Other bipolar disorder; Z59.86 Financial insecurity; K21.9 Gastro-esophageal reflux disease without esophagitis; G25.81 Restless legs syndrome; R41.82 Altered mental status, unspecified; E83.42 Hypomagnesemia; N39.0 Urinary tract infection, site not specified; Z87.440 Personal history of urinary (tract) infections; B95.62 Methicillin resistant Staphylococcus aureus infection as the cause of diseases classified elsewhere